=== PATIENT | female | born 1945 | race American Indian/Alaskan Native ===

== ENCOUNTER 2016-03-23 08:00 | Outpatient (CLI) | payer MEDICARE ==
--- NOTE | 2016-03-23 09:22 | Mammography Report ---
Screening mammogram: Routine views compared to her prior examination in January 2012. There is a generally fatty replaced pattern bilaterally. As a biopsy marker in the upper outer right breast and prior surgery was performed in the medial left breast. There is no associated distortion. Of note however is an inhomogeneous area of focal density located in the lateral right breast slightly superior to the nipple on the current study which was not present previously. No other interval changes are identified. CAD was utilized. Impression: Focal right breast asymmetry. Recommendation: Additional compression imaging of the right breast and ultrasound as needed. BI-RADS CATEGORY: 0 = Needs additional imaging evaluation ACR BI-RADS MAMMOGRAPHIC CODES: 0 = Needs additional imaging evaluation; 1 = Negative; 2 = Benign; 3 = Probably benign; 4 = Suspicious; 5 = Malignant; 6 = Known biopsy-proven malignancy COMMENT: 1. Dense breast tissue, i.e., adenosis, fibrocystic changes, etc., may obscure an underlying neoplasm. 2. Approximately 10% of cancers are not detected with mammography. 3. A negative mammography report should not delay biopsy if a clinically suspicious mass is present. A
== END 2016-03-23 08:01 | disposition home or self-care (01) ==
LOC: MAMMO 08:00
PROVIDERS: ATTEND Hospitalist
DX: Z12.31 Encounter for screening mammogram for malignant neoplasm of breast (principal)
CPT/HCPCS: 77067; G0202

== ENCOUNTER 2016-04-27 07:34 | Outpatient (CLI) | payer MEDICARE ==
--- NOTE | 2016-04-27 09:22 | Ultrasound Report ---
RIGHT DIGITAL DIAGNOSTIC MAMMOGRAM and RIGHT BREAST ULTRASOUND: 04/27/16 07:34:00 CLINICAL: Recalled for asymmetry. COMPARISON:03/23/16 screening mammogram. FINDINGS: Lateralmedial in MLO and CC spot compression views were performed and demonstrate a more prominent oval partially circumscribed mass, cyst or lymph node in the lower outer quadrant. Ultrasound of the right breast (including all four quadrants and the retroareolar area) was performed. An oval circumscribed isoechoic lymph node or mass is identified at 8 o'clock 14 cm from the nipple. It measures on 6 x 6 x 5 mm and appears to correlate with the mammographic density. There is subtle central echogenicity suggesting that it is likely an intramammary lymph node. IMPRESSION: Probably benign intramammary lymph node at 8 o'clock 2 cm from the nipple. BI-RADS CATEGORY: 3 - - Probably Benign RECOMMENDATION: Six month followup right mammogram and right breast ultrasound if needed. ACR BI-RADS MAMMOGRAPHIC CODES: 0 = Needs additional imaging evaluation; 1 = Negative; 2 = Benign; 3 = Probably benign; 4 = Suspicious; 5 = Malignant; 6 = Known biopsy-proven malignancy COMMENT: 1. Dense breast tissue, i.e., adenosis, fibrocystic changes, etc., may obscure an underlying neoplasm. 2. Approximately 10% of cancers are not detected with mammography. 3. A negative mammography report should not delay biopsy if a clinically suspicious mass is present. COMMENT: Patient follow-up letters are generated by our [employer] application.
== END 2016-04-27 07:35 | disposition home or self-care (01) ==
LOC: MAMMO 07:34
PROVIDERS: ATTEND Hospitalist
DX: R92.8 Other abnormal and inconclusive findings on diagnostic imaging of breast (principal)
CPT/HCPCS: 76641; G0206

== ENCOUNTER 2016-10-26 15:35 | Emergency (ER) | payer MEDICARE ==
[2016-10-26 16:16] LABS: Basophils % (Auto) 0.4 % (0.0-1.8); Eosinophils % (Auto) 2.4 % (0.0-4.3); Hematocrit 41.6 % (30.3-42.9); Hemoglobin 13.4 gm/dl (10.1-14.3); Mean Corpuscular HGB Conc 32 % (30-34); Mean Corpuscular Hemoglobin 31 pg (28-32); Mean Corpuscular Volume 97 fl (79-97); Platelet Count 288 K/mm3 (140-440); Red Cell Distribution Width 14.2 % (13.2-15.2)
[2016-10-26 16:32] LABS: Anion Gap 19 mmol/L; Blood Urea Nitrogen 6 mg/dL (7-17); Calcium 9.3 mg/dL (8.4-10.2); Carbon Dioxide 23 mmol/L (22-30); Chloride 105.5 mmol/L (98-107); Glucose 83 mg/dL (65-100); Potassium 3.8 mmol/L (3.6-5.0); Sodium 144 mmol/L (137-145)
--- NOTE | 2016-10-26 16:56 | XRay Report ---
CHEST 2 VIEWS INDICATION: Shortness of breath. COMPARISON: 03/13/2013 FINDINGS: PA and lateral chest radiographs demonstrate stable cardiomediastinal silhouette/borderline cardiomegaly and nonspecific right infrahilar density/scarring projecting along the right heart border. Mild horizontal left mid to lower lung atelectasis or scarring may be new. Otherwise clear lungs without pleural effusions or CHF. Mild thoracic dextroscoliosis. CONCLUSION: Slight interval variation without significant acute chest process, as described. Thank you for the opportunity to participate in this patient's care.
[2016-10-26] MEDS ORDERED: NACL 0.9% 500 ML 500 ML IV ONE (20:52)
[2016-10-26] MEDS ORDERED: PROVENTIL IH ONE ×2 (20:52→23:02)
--- NOTE | 2016-10-26 20:53 | Emergency Department Report ---
ED Shortness of Breath HPI - General Chief Complaint: Dyspnea/Respdistress Stated Complaint: LOW OXYGEN/SENT BY PHYSICIAN Time Seen by Provider: 10/26/16 20:37 Source: patient Mode of arrival: Ambulatory Limitations: No Limitations - History of Present Illness MD Complaint: shortness of breath, cough -: Gradual Severity: mild Quality: dull Consistency: intermittent Improves With: oxygen Worsens With: coughing Known History Of: COPD, asthma Context: recent URI Associated Symptoms: denies other symptoms, cough Treatments Prior to Arrival: oxygen - Related Data Home Oxygen Therapy: No Previous Rx's Medication Instructions Recorded Last Taken Type Rivaroxaban [Xarelto] 15 mg PO BIDDIAB #60 tablet 05/02/14 05/24/14 Rx amLODIPine [Norvasc] 2.5 mg PO QDAY #30 tablet 05/02/14 05/24/14 Rx Pantoprazole [Protonix TAB] 40 mg PO DAILY #30 tablet 05/31/14 Unknown Rx ALBUTEROL Inhaler [ProAir HFA 2 puff IH QID PRN #1 inhalation 10/26/16 Unknown Rx Inhaler] Doxycycline [Vibramycin CAP] 100 mg PO Q12HR #14 capsule 10/26/16 Unknown Rx HYDROcodone/APAP 5-325 [Capac 1 each PO Q6H PRN #20 tablet 10/26/16 Unknown Rx 5-325 mg TAB] Allergies Allergy/AdvReac Type Severity Reaction Status Date / Time No Known Allergies Allergy Unverified 05/24/14 15:47 ED Review of Systems ROS: Stated complaint: LOW OXYGEN/SENT BY PHYSICIAN Other details as noted in HPI Comment: All other systems reviewed and negative ED Past Medical Hx - Past Medical History Hx Hypertension: Yes Hx Heart Attack/AMI: Yes (2012) Hx Congestive Heart Failure: No Hx Diabetes: No Hx Deep Vein Thrombosis: Yes Hx Pulmonary Embolism: Yes Hx Liver Disease: (acute cholecystitis) Hx Arthritis: Yes Hx Asthma: No Hx COPD: No Hx HIV: No Additional medical history: Back problems. home O2 - Surgical History Past Surgical History?: Yes Additional Surgical History: x 3 - Social History Smoking Status: Never Smoker Substance Use Type: None - Medications Home Medications: Home Medications Medication Instructions Recorded Confirmed Last Taken Type Rivaroxaban [Xarelto] 15 mg PO BIDDIAB #60 tablet 05/02/14 05/24/14 05/24/14 Rx amLODIPine [Norvasc] 2.5 mg PO QDAY #30 tablet 05/02/14 05/24/14 05/24/14 Rx Pantoprazole [Protonix TAB] 40 mg PO DAILY #30 tablet 05/31/14 Unknown Rx ALBUTEROL Inhaler [ProAir HFA 2 puff IH QID PRN #1 inhalation 10/26/16 Unknown Rx Inhaler] Doxycycline [Vibramycin CAP] 100 mg PO Q12HR #14 capsule 10/26/16 Unknown Rx HYDROcodone/APAP 5-325 [Capac 1 each PO Q6H PRN #20 tablet 10/26/16 Unknown Rx 5-325 mg TAB] ED Physical Exam - General Limitations: No Limitations General appearance: alert, in no apparent distress - Head Head exam: Present: atraumatic, normocephalic - Eye Eye exam: Present: normal appearance, PERRL, EOMI - ENT ENT exam: Present: normal exam, normal orophraynx, mucous membranes moist - Neck Neck exam: Present: normal inspection - Respiratory Respiratory exam: Present: normal lung sounds bilaterally, rhonchi, decreased breath sounds. Absent: respiratory distress, wheezes, rales, chest wall tenderness, accessory muscle use - Cardiovascular Cardiovascular Exam: Present: regular rate, normal rhythm. Absent: systolic murmur, diastolic murmur, rubs, gallop - GI/Abdominal GI/Abdominal exam: Present: soft, normal bowel sounds - Extremities Exam Extremities exam: Present: normal inspection - Back Exam Back exam: Present: normal inspection - Neurological Exam Neurological exam: Present: alert, oriented X3 - Psychiatric Psychiatric exam: Present: normal affect, normal mood - Skin Skin exam: Present: warm, dry, intact, normal color. Absent: rash ED Course Vital Signs 10/26/16 10/26/16 10/26/16 15:50 20:23 20:31 Temperature 98.4 F Pulse Rate 78 72 69 Respiratory 18 19 19 Rate Blood Pressure 149/79 170/83 O2 Sat by Pulse 96 97 94 Oximetry 10/26/16 10/26/16 10/26/16 21:00 21:30 22:01 Temperature Pulse Rate 72 71 68 Respiratory 21 22 17 Rate Blood Pressure 136/73 123/75 130/67 O2 Sat by Pulse 94 94 95 Oximetry 10/26/16 22:31 Temperature Pulse Rate 75 Respiratory 19 Rate Blood Pressure 151/78 O2 Sat by Pulse 93 Oximetry ED Medical Decision Making - Lab Data Result diagrams: 10/26/16 16:00 10/26/16 16:00 - Radiology Data Radiology results: report reviewed, image reviewed - Medical Decision Making patient doing much better , VSS and normal , abx and steroids given here. CXR no evidence of pneumonia, will dc and follow up in 24 to 48h Critical care attestation.: If time is entered above; I have spent that time in minutes in the direct care of this critically ill patient, excluding procedure time. ED Disposition Clinical Impression: Bronchitis Disposition: DC-01 TO HOME OR SELFCARE Is pt being admited?: No Does the pt Need Aspirin: No Condition: Good Instructions: Chronic Bronchitis (ED), Acute Bronchitis (ED) Prescriptions: ALBUTEROL Inhaler [ProAir HFA Inhaler] 2 puff IH QID PRN #1 inhalation PRN Reason: Shortness Of Breath Doxycycline [Vibramycin CAP] 100 mg PO Q12HR #14 capsule HYDROcodone/APAP 5-325 [Capac 5-325 mg TAB] 1 each PO Q6H PRN #20 tablet PRN Reason: Moderate Pain Referrals: PRIMARY CARE,MD [Primary Care Provider] - 3-5 Days
[2016-10-26] MEDS ORDERED: ZITHROMAX 500 MG in NACL 0.9% 250ML 250 ML IV ONE (21:52)
[2016-10-26] MEDS ORDERED: MAXIPIME/NS 1 GM/100 ML 1 GM/100 ML BAG IV ONE (22:00)
[2016-10-27 02:51] VITALS: BP 138/66
== END 2016-10-27 02:50 | disposition home or self-care (01) ==
LOC: ED 15:35
DX: J40 Bronchitis, not specified as acute or chronic (principal); I10 Essential (primary) hypertension; I25.2 Old myocardial infarction; M19.90 Unspecified osteoarthritis, unspecified site
CPT/HCPCS: 36415; 71020; 80048; 84484; 85025; 93005; 93010; 94640; 96365; 96366; 96368; 96375; 99284; J0456; J0692; J2930; J7040; J7050

== ENCOUNTER 2016-11-11 11:07 | Outpatient (CLI) | payer MEDICARE ==
--- NOTE | 2016-11-11 12:50 | Ultrasound Report ---
RIGHT DIGITAL DIAGNOSTIC MAMMOGRAM with CAD and RIGHT BREAST ULTRASOUND: 11/11/16 11:07:00 CLINICAL: Follow-up of a probably benign lymph node with an asymmetry on the mammogram. COMPARISON:04/27/16 FINDINGS: The breast is mostly fatty. Upper-outer biopsy clip. The previously described oval low density outer focal asymmetry is less dense than on the prior exam. No other significant finding. Ultrasound of the right breast demonstrated a stable lymph node with a small amount of central echogenic fat at 8 o'clock 11 cm from the nipple. This correlates with the previously identified lymph node. It measures 6 x 6 x 4 mm and has not changed significantly in size or appearance. A previously identified 8 mm cyst 4 cm from the nipple is no longer identified. IMPRESSION: A stable benign intraparenchymal lymph node. No suspicious finding. BI-RADS CATEGORY: 2 -- Benign RECOMMENDATION: Return to routine mammographic screening. ACR BI-RADS MAMMOGRAPHIC CODES: 0 = Needs additional imaging evaluation; 1 = Negative; 2 = Benign; 3 = Probably benign; 4 = Suspicious; 5 = Malignant; 6 = Known biopsy-proven malignancy COMMENT: 1. Dense breast tissue, i.e., adenosis, fibrocystic changes, etc., may obscure an underlying neoplasm. 2. Approximately 10% of cancers are not detected with mammography. 3. A negative mammography report should not delay biopsy if a clinically suspicious mass is present. COMMENT: Patient follow-up letters are generated by our [employer] application.
== END 2016-11-11 11:08 | disposition home or self-care (01) ==
LOC: MAMMO 11:07
PROVIDERS: ATTEND General Practice
DX: R92.8 Other abnormal and inconclusive findings on diagnostic imaging of breast (principal); I11.0 Hypertensive heart disease with heart failure; I50.9 Heart failure, unspecified; I25.10 Atherosclerotic heart disease of native coronary artery without angina pectoris
CPT/HCPCS: 76642; G0206

== ENCOUNTER 2017-06-02 10:09 | Outpatient (CLI) | payer MEDICARE ==
--- NOTE | 2017-06-02 16:26 | Mammography Report ---
BILATERAL DIGITAL SCREENING MAMMOGRAM with CAD: 06/02/17 10:09:00 CLINICAL: Routine screening. COMPARISON:04/27/16 and 11/11/16 mammograms and right breast ultrasound FINDINGS: The breasts are mostly fatty. The previously described partially circumscribed right outer asymmetry is larger compared to prior exams and requires additional imaging.No architectural distortion or suspicious calcifications.The left breast is negative. IMPRESSION: Right asymmetry requiring further workup. BI-RADS CATEGORY: 0 -- Additional Imaging Evaluation Required RECOMMENDATION: Recall for a right outer breast ultrasound. ACR BI-RADS MAMMOGRAPHIC CODES: 0 = Needs additional imaging evaluation; 1 = Negative; 2 = Benign; 3 = Probably benign; 4 = Suspicious; 5 = Malignant; 6 = Known biopsy-proven malignancy COMMENT: 1. Dense breast tissue, i.e., adenosis, fibrocystic changes, etc., may obscure an underlying neoplasm. 2. Approximately 10% of cancers are not detected with mammography. 3. A negative mammography report should not delay biopsy if a clinically suspicious mass is present. COMMENT: Patient follow-up letters are generated via our [employer] application.
== END 2017-06-02 10:10 | disposition home or self-care (01) ==
LOC: MAMMO 10:09
PROVIDERS: ATTEND Hospitalist
DX: Z12.31 Encounter for screening mammogram for malignant neoplasm of breast (principal); I11.0 Hypertensive heart disease with heart failure; I50.9 Heart failure, unspecified; I25.10 Atherosclerotic heart disease of native coronary artery without angina pectoris
CPT/HCPCS: 77067

== ENCOUNTER 2017-06-16 08:28 | Outpatient (CLI) | payer MEDICARE ==
--- NOTE | 2017-06-16 09:45 | Ultrasound Report ---
Right breast ultrasound: Right breast images are compared to her prior examination on November 11, 2016. In the 8:00 location 11 cm from the nipple there is a circumscribed hypodensity with a central echodensity consistent with a lymph node. When compared to the prior exam using similar orientation it is unchanged in size measuring between 5 and 6 mm. On one current image which appears somewhat more elongated it measures 7.8 mm however a comparable image is not obtained previously. Stable right axillary lymph node noted. Impression: Stable nonsuspicious findings consistent with lymph nodes. Recommendation: Resume annual mammogram followup. BI-RADS CATEGORY: 2 = Benign ACR BI-RADS MAMMOGRAPHIC CODES: 0 = Needs additional imaging evaluation; 1 = Negative; 2 = Benign; 3 = Probably benign; 4 = Suspicious; 5 = Malignant; 6 = Known biopsy-proven malignancy COMMENT: 1. Dense breast tissue, i.e., adenosis, fibrocystic changes, etc., may obscure an underlying neoplasm. 2. Approximately 10% of cancers are not detected with mammography. 3. A negative mammography report should not delay biopsy if a clinically suspicious mass is present.
== END 2017-06-16 08:29 | disposition home or self-care (01) ==
LOC: MAMMO 08:28
PROVIDERS: ATTEND General Practice
DX: R92.8 Other abnormal and inconclusive findings on diagnostic imaging of breast (principal); I11.0 Hypertensive heart disease with heart failure; I50.9 Heart failure, unspecified

== ENCOUNTER 2018-06-05 09:55 | Outpatient (CLI) | payer MEDICARE ==
--- NOTE | 2018-06-05 13:06 | Mammography Report ---
BILATERAL DIGITAL SCREENING MAMMOGRAM with CAD: 06/05/18 09:55:00 CLINICAL: Routine screening. COMPARISON:06/02/17 FINDINGS: The breasts are almost entirely fatty.The previously described right lymph node at 8 o'clock is smaller compared to previous exams. No mass, architectural distortion or suspicious calcifications. IMPRESSION: No mammographic evidence of malignancy. BI-RADS CATEGORY: 2 -- Benign RECOMMENDATION: Routine mammographic screening in one year. COMMENT: Patient follow-up letters are generated by our [employer] application.
== END 2018-06-05 09:56 | disposition home or self-care (01) ==
LOC: MAMMO 09:55
PROVIDERS: ATTEND Hospitalist
DX: Z12.31 Encounter for screening mammogram for malignant neoplasm of breast (principal); I10 Essential (primary) hypertension; E66.01 Morbid (severe) obesity due to excess calories
CPT/HCPCS: 77067

== ENCOUNTER 2020-01-24 09:02 | Outpatient (CLI) | payer MEDICARE ==
--- NOTE | 2020-01-24 12:28 | Mammography Report ---
DIGITAL SCREENING MAMMOGRAM WITH CAD, 01/24/2020 CLINICAL INFORMATION / INDICATION: Routine screening mammography. SCREENING MAMMO TECHNIQUE: Digital bilateral 2D mammography was obtained in the craniocaudal and mediolateral obliqu e projections. This examination was interpreted with the benefit of Computer-Aided Detection analysis . COMPARISON: 06/02/2017 and 06/05/2018 FINDINGS: Breast Density: There are scattered areas of fibroglandular density. No dominant mass, suspicious calcifications, or architectural distortion in either breast. Stable nodule on the right. There are stable right calcifications with adjacent biopsy marking clip. IMPRESSION: No mammographic evidence of malignancy. Follow up recommendation: Routine yearly BI-RADS Category 2: Benign. A "normal" or negative report should not discourage follow up or biopsy of a clinically significant f inding. A written summary of these findings will be mailed to the patient. The patient will be entered into a mammography reporting system which will generate a reminder letter for the patient's next appointmen t at the appropriate interval. The [employer] recommends yearly mammograms starting at age 40 and continuing as l lissy as a woman is in good health. Breast MRI is recommended for women with an approximate 20-25% or greater lifetime risk of breast cancer, including women with a strong family history of breast or ova valencia cancer or who have been treated for Hodgkin's disease. Signer Name: Fran Shelton MD Signed: 01/24/2020 12:24 PM Workstation Name: [id number]
== END 2020-01-24 09:03 | disposition home or self-care (01) ==
LOC: MAMMO 09:02
PROVIDERS: ATTEND Family Medicine
DX: Z12.31 Encounter for screening mammogram for malignant neoplasm of breast (principal); N64.89 Other specified disorders of breast; N63.10 Unspecified lump in the right breast, unspecified quadrant
CPT/HCPCS: 77067

== ENCOUNTER 2021-01-25 08:09 | Outpatient (CLI) | payer MEDICARE ==
--- NOTE | 2021-01-25 15:21 | Mammography Report ---
DIGITAL SCREENING MAMMOGRAM WITH CAD, 01/25/2021 CLINICAL INFORMATION / INDICATION: Routine screening mammography. TECHNIQUE: Digital bilateral 2D mammography was obtained in the craniocaudal and mediolateral obliqu e projections. This examination was interpreted with the benefit of Computer-Aided Detection analysis . COMPARISON: 01/24/2020, 06/05/2018 FINDINGS: Breast Density: There are scattered areas of fibroglandular density. No dominant mass, suspicious calcifications, or architectural distortion in either breast. Circumscribed nodule in the right breast is again noted and is unchanged. There is a biopsy marker in the upper outer right breast. IMPRESSION: No mammographic evidence of malignancy. Follow up recommendation: Routine yearly BI-RADS Category 2: Benign. A "normal" or negative report should not discourage follow up or biopsy of a clinically significant f inding. A written summary of these findings will be mailed to the patient. The patient will be entered into a mammography reporting system which will generate a reminder letter for the patient's next appointmen t at the appropriate interval. The [employer] recommends yearly mammograms starting at age 40 and continuing as l lissy as a woman is in good health. Breast MRI is recommended for women with an approximate 20-25% or greater lifetime risk of breast cancer, including women with a strong family history of breast or ova valencia cancer or who have been treated for Hodgkin's disease. Signer Name: Cathy Palacio MD Signed: 01/25/2021 3:16 PM Workstation Name: [email or web address]
== END 2021-01-25 08:10 | disposition home or self-care (01) ==
LOC: MAMMO 08:09
PROVIDERS: ATTEND Family Medicine
DX: Z12.31 Encounter for screening mammogram for malignant neoplasm of breast (principal)
CPT/HCPCS: 77067